=== PATIENT | male | born 1955 | race Caucasian/White ===

== ENCOUNTER → 2022-06-08 12:48 | Outpatient (BNVA) | payer MEDICARE, OTHER, SELFPAY | PROVIDERS: Family Provider Internal Medicine; PCP Internal Medicine; Visit Provider Family Medicine | DX: E11.9 Type 2 diabetes mellitus without complications (principal); E78.5 Hyperlipidemia, unspecified; I10 Essential (primary) hypertension; K21.9 Gastro-esophageal reflux disease without esophagitis; G47.33 Obstructive sleep apnea (adult) (pediatric); Z99.89 Dependence on other enabling machines and devices; Z00.00 Encounter for general adult medical examination without abnormal findings; F41.9 Anxiety disorder, unspecified | CPT/HCPCS: 80053; 80061; 83036 ==

== ENCOUNTER → 2022-10-04 08:13 | Outpatient (BNVA) | payer MEDICARE, OTHER, SELFPAY | PROVIDERS: Family Provider Internal Medicine; PCP Family Medicine; Visit Provider Family Medicine | DX: E11.9 Type 2 diabetes mellitus without complications (principal); R63.4 Abnormal weight loss; Z12.5 Encounter for screening for malignant neoplasm of prostate; G47.33 Obstructive sleep apnea (adult) (pediatric); I10 Essential (primary) hypertension; K21.9 Gastro-esophageal reflux disease without esophagitis; R41.3 Other amnesia; Z99.89 Dependence on other enabling machines and devices; E78.5 Hyperlipidemia, unspecified; G47.9 Sleep disorder, unspecified | CPT/HCPCS: 80053; 80061; 82607; 83036; 84443; 86592; G0103 ==

== ENCOUNTER 2022-12-25 13:55 | Emergency (ER) | payer MEDICARE, OTHER, SELFPAY ==
[2022-12-25 14:08] VITALS: BP 173/85; PULSE 97; RESP 16; TEMP 36.5; O2SAT 95; BMI 27.3
[2022-12-25 15:34] VITALS: BP 116/66; PULSE 69; RESP 18; O2SAT 93
[2022-12-25 16:00] LABS: Basophils % 0.5 %; Eosinophils % 0.4 %; Hematocrit 47.4 % (42.0-52.0); Hemoglobin 15.8 g/dL (11.7-16.6); Lymphocytes # 1.9 10^3/uL (0.8-4.8); Lymphocytes % 25.4 %; Mean Corpuscular HGB Conc 33.3 g/dL (30.0-36.0); Mean Corpuscular Hemoglobin 31.2 pg (28.0-34.0); Mean Corpuscular Volume 93.5 fl (80-94); Mean Platelet Volume 9.7 fL (7.4-10.4); Monocytes # 0.5 10^3/uL (0.2-0.9); Neutrophils # 5.05 10^3/uL (1.8-7.7); Neutrophils % 66.4 %; Nucleated Red Blood Cells % 0 %; Platelet Count 273 10^3/cmm (130-400); Red Blood Count 5.07 10^6/uL (4.1-5.3); Red Cell Distribution Width 12.4 % (12.1-15.1); White Blood Count 7.6 10^3/uL (4.0-10.0)
--- NOTE | 2022-12-25 16:11 | CTR_ITS ---
PROCEDURE INFORMATION: Exam: CT Head Without Contrast Exam date and time: 12/25/2022 4:19 PM Age: 67 years old Clinical indication: Numbness / parasthesia; Left; Additional info: L hand numbness TECHNIQUE: Imaging protocol: Computed tomography of the head without contrast. Radiation optimization: All CT scans at this facility use at least one of these dose optimization techniques: automated exposure control; mA and/or kV adjustment per patient size (includes targeted exams where dose is matched to clinical indication); or iterative reconstruction. REPORTING DATA: Count of CT and Cardiac NM exams in prior 12 months: This patient has received 0 known CTs and 0 known cardiac nuclear medicine studies in the 12 months prior to the current study. COMPARISON: No relevant prior studies available. RADIATION DOSE METRICS: Total DLP (mGy-cm): 1050.9 FINDINGS: Brain: There are mild periventricular and subcortical lucencies consistent with chronic microvascular ischemic changes.The lewis-white differentiation is maintained. No hemorrhage. No edema. Cerebral ventricles: No ventriculomegaly. Paranasal sinuses: Visualized sinuses are unremarkable. No fluid levels. Mastoid air cells: Visualized mastoid air cells are well aerated. Bones/joints: Unremarkable. No acute fracture. Soft tissues: Unremarkable. CT/CT head wo con* [id number] IMPRESSION: No acute intracranial abnormality. Chronic microvascular ischemic changes.
--- NOTE | 2022-12-25 16:11 | ECG_ITS ---
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 Measurements Intervals [place] Rate: 80 P: 0 IN: 0 QRS: 132 QRSD: 114 T: 95 QT: 376 QTc: 436 Interpretive Statements ATRIAL FIBRILLATION WITH ABERRANT CONDUCTION OR VENTRICULAR PREMATURE COMPLEXES RIGHT AXIS DEVIATION [QRS AXIS > 100] Compared to ECG 03/02/2019 13:22:22 Aberrant conduction of supraventricular beat(s) now present Right-axis deviation now present Myocardial infarct finding now present Sinus rhythm no longer present Electronically Signed On 12-25-2022 22:53:13 CDT by Balaji Arizmendi M.D. [id number]
[2022-12-25 16:20] LABS: Alanine Aminotransferase 17 U/L (0-41); Albumin Level 4.3 g/dL (3.5-5.2); Alkaline Phosphatase 87 U/L (40-130); Anion Gap 13.1 (5-19); Aspartate Amino Transferase 19 U/L (0-40); Blood Urea Nitrogen 11 mg/dL (8-23); Calcium 9.9 mg/dL (8.5-10.5); Carbon Dioxide 30 mmol/L (22-29); Chloride 93 mmol/L (98-107); Globulin 2.6 g/dL (1.3-4.6); Glomerular Filtration Rate 50.2 mL/min (90-130); Glucose 205 mg/dL (65-115); Lipase 21 U/L (13-60); Osmolality Calculated 279 mOsm/kg (285-295); Potassium 4.1 mmol/L (3.5-5.1); Sodium 132 mmol/L (136-145); Total Bilirubin 0.3 mg/dL (0.15-1.2); Total Protein 6.9 g/dL (6.6-8.7)
--- NOTE | 2022-12-25 16:21 | ED_ITS ---
HPI - General Adult General: Chief complaint: Nausea/Vomiting/Diarrhea Stated complaint: left arm tingling, BP issues Time Seen by Provider: 12/25/22 16:02 Source: patient Mode of arrival: ambulatory History of Present Illness: 67-year-old male presents emergency room with complaints of generally not feeling well elevated blood pressure and nausea. He is also complaining of some left arm numbness and tingling however it is limited to the third fourth and fifth fingers on the left hand in the ulnar ridge of his forearm. It does not come proximal to the elbow. He has no other symptoms no difficulty speech or swallowing. No difficulty with vision. No chest pain shortness of breath no falls. Onset (ago): minute(s) Location: left and upper extremity Severity: mild Pain Consistency: constant Relieving factors: none Exacerbating factors: none Associated symptoms: Deny chest pain, confusion, cough, diaphoresis, decreased appetite, dyspnea, fevers/chills, headache(s), malaise, nausea, rash, palpitations, seizures, short of breath, syncope, vomiting or weakness Treatments prior to arrival: none Review of Systems Const: Denies: fever(s), chills, malaise or diaphoresis ENMT: Denies: throat pain, ear or mastoid pain, nasal discharge or nasal congestion Card: Denies: chest pain, palpitations or syncope Resp: Denies: dyspnea GI: Denies: nausea or vomiting : Denies: flank pain, dysuria, urinary frequency or urinary urgency Skin/Breast: Denies: rash Neuro: Denies: headache(s) or confusion PFS ED PFSH: Medical History Anxiety Diabetes Dyslipidemia GERD (gastroesophageal reflux disease) Hypertension TREVOR on CPAP Vitiligo Surgical History No history of previous surgery Family History Mother CAD (coronary artery disease) Cancer pancreatic Brother Family history of premature coronary artery disease Diabetes Denies family history of Dementia Chronic kidney disease (CKD) Stroke Social History Smoking and tobacco status: never smoked Second hand smoke exposure: Yes Alcohol intake: former Lives independently: Yes Household members: spouse Marital status: Physical Exam Const: GENERAL APPEARANCE: cooperative and comfortable ORIENTATION/CONSCI OUSNESS: Yes awake, Yes oriented to person, Yes oriented to place and Yes oriented to time HENMT: COMMON NORMALS: normocephalic, atraumatic and hearing grossly normal bilaterally HEAD & SCALP: normocephalic and atraumatic Resp: COMMON NORMALS: normal respiratory effort, No retractions, No use of accessory muscles and clear to auscultation bilaterally AUSCULTATION: clear to auscultation bilaterally Cardio: COMMON NORMALS: regular rate, regular rhythm and No murmurs present (Cardio) RATE: regular rate RHYTHM: regular rhythm GI: COMMON NORMALS: Soft to palpation and No hepatosplenomegaly present AUSCULTATION: Yes normoactive bowel sounds PALPATION: Yes Soft to palpation, No Tenderness to palpation present (GI), No Guarding due to palpation present (GI) and Yes No hepatosplenomegaly present Extremity: COMMON NORMALS: normal to inspection, capillary refill normal, no clubbing, cyanosis or edema, no calf tenderness and no pedal edema Neuro: SENSORIUM/ORIENTATION: Yes oriented to person, Yes oriented to place and Yes oriented to time Skin: COMMON NORMALS: no rashes or lesions noted GENERAL SKIN EXAM: no rashes or lesions noted Course Vital Signs: Vital signs: Vital Signs Temperature 97.7 F 12/25/22 14:08 Pulse Rate 75 12/25/22 18:00 Respiratory Rate 18 12/25/22 18:00 Blood Pressure 165/91 12/25/22 18:00 Pulse Oximetry 97 12/25/22 18:00 MDM - General Adult Medical Decision Making NIH score of 1 for the loss of sensation is very limited and actually fairly minor it is purely in the ulnar distribution of the left arm distal to the elbow. With scratch testing patient has a very minor differentiation. He reports more numbness and tingling kind of sensation. Discussed with him about an ulnar nerve compression he does admit he frequently leans on that elbow when doing different tasks. His blood pressure is actually mildly elevated he is reporting quite a bit of variation at home. He would benefit from further blood pressure control we will add amlodipine 5 mg daily. Patient encouraged to follow-up with primary care within the next week to reevaluate blood pressure. Return if is worsening change symptoms Medical Records I reviewed the patient's medical records. Lab Data I reviewed the patient's lab results. 12/25/22 15:17 12/25/22 15:[address] 12/25/22 16:11 IMPRESSION: No acute intracranial abnormality. Chronic microvascular ischemic changes. Laboratory Results WBC 7.6 10^3/uL (4.0-10.0) 12/25/22 15:17 RBC 5.07 10^6/uL (4.1-5.3) 12/25/22 15:17 Hgb 15.8 g/dL (11.7-16.6) 12/25/22 15:17 Hct 47.4 % (42.0-52.0) 12/25/22 15:17 MCV 93.5 fl (80-94) 12/25/22 15:17 MCH 31.2 pg (28.0-34.0) 12/25/22 15:17 MCHC 33.3 g/dL (30.0-36.0) 12/25/22 15:17 RDW 12.4 % (12.1-15.1) 12/25/22 15:17 Plt Count 273 10^3/cmm (130-400) 12/25/22 15:17 MPV 9.7 fL (7.4-10.4) 12/25/22 15:17 Neut % (Auto) 66.4 % 12/25/22 15:17 Lymph % (Auto) 25.4 % 12/25/22 15:17 Coffee % (Auto) 7.0 % 12/25/22 15:17 Eos % (Auto) 0.4 % 12/25/22 15:17 Baso % (Auto) 0.5 % 12/25/22 15:17 Neut # (Auto) 5.05 10^3/uL (1.8-7.7) 12/25/22 15:17 Lymph # (Auto) 1.9 10^3/uL (0.8-4.8) 12/25/22 15:17 Coffee # (Auto) 0.5 10^3/uL (0.2-0.9) 12/25/22 15:17 Eos # (Auto) 0.0 10^3/uL (0.0-0.8) 12/25/22 15:17 Baso # (Auto) 0.0 10^3/uL (0.0-0.1) 12/25/22 15:17 Nucleated RBC % (auto) 0 % 12/25/22 15:17 Nucleated RBCs # 0.0 /100WBC 12/25/22 15:17 Sodium 132 mmol/L (136-145) L 12/25/22 15:17 Potassium 4.1 mmol/L (3.5-5.1) 12/25/22 15:17 Chloride 93 mmol/L (98-107) L 12/25/22 15:17 Carbon Dioxide 30 mmol/L (22-29) H 12/25/22 15:17 Anion Gap 13.1 (5-19) 12/25/22 15:17 BUN 11 mg/dL (8-23) 12/25/22 15:17 Creatinine 1.4 mg/dL (0.7-1.2) H 12/25/22 15:17 GFR Calculation 50.2 mL/min (90-130) L 12/25/22 15:17 Glucose 205 mg/dL (65-115) H 12/25/22 15:17 Calculated Osmolality 279 mOsm/kg (285-295) L 12/25/22 15:17 Calcium 9.9 mg/dL (8.5-10.5) 12/25/22 15:17 Total Bilirubin 0.3 mg/dL (0.15-1.2) 12/25/22 15:17 AST 19 U/L (0-40) 12/25/22 15:17 ALT 17 U/L (0-41) 12/25/22 15:17 Alkaline Phosphatase 87 U/L (40-130) 12/25/22 15:17 Total Protein 6.9 g/dL (6.6-8.7) 12/25/22 15:17 Albumin 4.3 g/dL (3.5-5.2) 12/25/22 15:17 Globulin 2.6 g/dL (1.3-4.6) 12/25/22 15:17 Lipase 21 U/L (13-60) 12/25/22 15:17 Urine Color Yellow (Yellow) 12/25/22 16:46 Urine Appearance Clear (CLEAR) 12/25/22 16:46 Urine pH 7 (5-7) 12/25/22 16:46 Ur Specific [place] 1.010 (1.005-1.030) 12/25/22 16:46 Urine Protein Neg (Negative) 12/25/22 16:46 Urine Glucose (UA) Norm (Normal) 12/25/22 16:46 Urine Ketones Negative (Negative) 12/25/22 16:46 Urine Blood Neg (Negative) 12/25/22 16:46 Urine Nitrate Negative (Negative) 12/25/22 16:46 Urine Bilirubin Neg (Negative) 12/25/22 16:46 Urine Urobilinogen Neg mg/dL (Negative) 12/25/22 16:46 Ur Leukocyte Esterase Negative (Negative) 12/25/22 16:46 Discharge Plan Discharge Patient Disposition: Home Clinical Impression: HTN (hypertension), Ulnar neuropathy Condition: Stable Prescriptions: New amlodipine 5 mg tablet 5 mg PO DAILY Qty: 30 0RF No Action omeprazole 20 mg capsule,delayed release(DR/EC) 20 mg PO DAILY Qty: 90 0RF hydrochlorothiazide 25 mg tablet 25 mg PO DAILY Qty: 90 0RF amitriptyline 50 mg tablet 50 mg PO DAILY Qty: 90 0RF (DME) CPAP Device See Rx Instructions .Route Qty: 1 0RF Rx Instructions: Cpap supplies Aspir-81 81 mg Tablet,Delayed Release (Dr/Ec) 81 mg PO DAILY Motrin 400 mg Tablet 800 mg PO Q8H PRN (Reason: Pain) Xyzal 5 mg Tablet 5 mg PO DAILY PRN (Reason: Allergy Symptoms) Discharge Orders: Discharge ED (Routine); Ordered 12/25/22 Ordered By: Amrit Parra Referrals: Lyn Hameed MD [Primary Care Provider] - Discharge Diet: Usual diet Discharge Activity: Resume usual activity Patient Instructions: Opioid Safety, Pain Management Activity Restrictions/Additional Instructions: You are seen today for elevated blood pressure and numbness in your left hand the sensation left hand is follows a pattern suggestive of an ulnar neuropathy. CT of your head was negative your blood pressure was slightly elevated recommend you start the amlodipine 5 mg daily continue other previously prescribed medications and follow-up with your primary care doctor for further evaluation your blood pressure if the numbness continues in the hand the primary care doctor can arrange for further evaluation. Coding Level of Care Code ED [employer] for [employer]g Fwd NIH stroke score NIHSS Level Of Consciousness - 1a: 0 Level Of Consciousness Questions - 1b: Both Correct Level Of Consciousness Commands - 1c: Both Correct Best Gaze - 2: Normal Visual Salter - 3: No Visual Loss Facial Palsy - 4: Normal Motor Arm Right - 5: No Drift Motor Arm Left - 5: No Drift Motor Leg Right - 6: No Drift Motor Leg Left - 6: No Drift Limb Ataxia - 7: Absent Sensory - 8: Mild To Moderate Loss (Limited to the distribution of the ulnar nerve in the left arm) Best Language - 9: No Aphasia Dysarthia - 10: Normal Extinction And Inattention - 11: 0 Score Total Score: 1
[2022-12-25 16:52] VITALS: BP 145/84; PULSE 81; RESP 16; O2SAT 98
[2022-12-25 16:57] LABS: Add Urine Microscopic? NO; Charge for UA Resulting for Rev
[2022-12-25 17:00] VITALS: BP 156/74; PULSE 75; RESP 17; O2SAT 97
[2022-12-25 17:30] VITALS: BP 158/92; PULSE 72; RESP 22; O2SAT 97
[2022-12-25 17:44] LABS: Bilirubin Urine Neg (Negative); Blood Urine Neg (Negative); Glucose Urine UA Norm (Normal); Ketones Urine Negative (Negative); Leukocyte Esterase Urine Negative (Negative); Nitrate Urine Negative (Negative); Protein Urine Neg (Negative); Urine Appearance Clear (CLEAR); Urine Color Yellow (Yellow); Urobilinogen Urine Neg (Negative); pH Urine 7 (5-7)
[2022-12-25 18:00] VITALS: BP 165/91; PULSE 75; RESP 18; O2SAT 97
== END 2022-12-25 18:29 | disposition home or self-care (01) ==
PROVIDERS: Emergency Provider Family Medicine; PCP Family Medicine
DX: I10 Essential (primary) hypertension (principal); G56.22 Lesion of ulnar nerve, left upper limb; Z79.82 Long term (current) use of aspirin; E11.9 Type 2 diabetes mellitus without complications; E78.5 Hyperlipidemia, unspecified; Z77.22 Contact with and (suspected) exposure to environmental tobacco smoke (acute) (chronic)
CPT/HCPCS: 36415; 70450; 80053; 81003; 83690; 85025; 93005; 99285

== ENCOUNTER → 2023-01-04 08:27 | Outpatient (BNVA) | payer MEDICARE, OTHER, SELFPAY | PROVIDERS: PCP Family Medicine; Visit Provider Family Medicine | DX: E11.9 Type 2 diabetes mellitus without complications (principal); E78.5 Hyperlipidemia, unspecified; N17.9 Acute kidney failure, unspecified; I10 Essential (primary) hypertension; K21.9 Gastro-esophageal reflux disease without esophagitis; Z99.89 Dependence on other enabling machines and devices; G47.33 Obstructive sleep apnea (adult) (pediatric); G47.9 Sleep disorder, unspecified; R41.3 Other amnesia | CPT/HCPCS: 80048; 80061; 83036 ==

== ENCOUNTER 2023-01-17 11:01 | Emergency (ER) | payer MEDICARE, OTHER, SELFPAY ==
[2023-01-17 11:34] VITALS: BP 157/74; PULSE 73; RESP 16; O2SAT 99; BMI 27.3
[2023-01-17 14:15] VITALS: BP 172/76; PULSE 89; RESP 18; O2SAT 99
--- NOTE | 2023-01-17 15:04 | ED_ITS ---
HPI - General Adult General: Chief complaint: Recheck/Abnormal Lab/Rx Stated complaint: Low blood pressure, Pulse abnormal Time Seen by Provider: 01/17/23 14:17 Source: patient Mode of arrival: ambulatory Limitations: no limitations History of Present Illness: Patient is a nice 67-year-old male who presents to ED today stating he had an episode of low blood pressure and low pulse after taking a half oxycodone and smoking marijuana. Patient states he is unfortunately dealing with the of his brother. His /burial ceremony was yesterday and patient states he was struggling with some grief today so decided to take 1/2 tablet of a 5 mg oxycodone and states he smoked some marijuana. He states none of these were taken in any type of ill attempt to harm himself. He states after taking these medications he had an episode where he felt like he might pass out. reportedly took a blood pressure and a pulse and told him it was low thus prompting his ED visit. Upon arrival patient admittedly already feels better. Blood pressure upon arrival is 157/74 with a pulse of 73. During my initial examination patient tells me he is completely asymptomatic. He states that he feels silly that he came to the ED. Patient denies chest pain, shortness of breath, difficulty breathing, lightheadedness/dizziness. Patient states he does not want any form of work-up and would like to go home at this time. Onset (ago): hour(s) Pain Consistency: now resolved Relieving factors: none Exacerbating factors: medication Associated symptoms: Reports no associated symptoms; Deny chest pain, confusion, dyspnea, headache(s), malaise, nausea, rash, p alpitations, syncope or vomiting Treatments prior to arrival: none Review of Systems Const: Denies: fever(s), chills, body aches, fatigue or malaise Eyes: Denies: change in vision, blurry vision, photophobia, floaters or seeing flashes Card: Reports: lightheadedness (resolved) and pre-syncope (resolved); Denies: chest pain, palpitations, irregular heart rhythm, edema, swelling of feet/ankles, syncope, dyspnea on exertion, orthopnea, leg pain with exertion or acrocyanosis Resp: Denies: dyspnea, productive cough, non-productive cough, wheezing, stridor, pain on inspiration, change in phlegm color, hemoptysis or chest congestion GI: Denies: abdominal pain, nausea, vomiting or diarrhea Musc: Denies: neck pain, back pain, extremity pain or joint pain Skin/Breast: Denies: rash Neuro: Denies: headache(s), numbness in extremities, weakness in extremities, sensory changes, difficulty walking, frequent falls, confusion, behavioral changes, Slurred speech present, difficulty communicating thoughts or seizure- like activity Psych: Reports: other (grief from of brother); Denies: depression or suicidal ideation PFSH ED PFSH: Medical History Anxiety Diabetes Dyslipidemia GERD (gastroesophageal reflux disease) Hypertension TREVOR on CPAP Vitiligo Surgical History No history of previous surgery Family History Mother CAD (coronary artery disease) Cancer pancreatic Brother Family history of premature coronary artery disease Diabetes Denies family history of Dementia Chronic kidney disease (CKD) Stroke Social History Smoking and tobacco status: never smoked Second hand smoke exposure: Yes Alcohol intake: former Substance/Drug Use: never Lives independently: Yes Household members: spouse Marital status: Physical Exam Const: COMMON NORMALS: no acute distress, average body habitus, patient oriented x3, no limitations, healthy appearing, alert and well nourished ORIENTATION/CONSCIOUSNESS: Yes awake, Yes oriented to person, Yes oriented to place and Yes oriented to time HENMT: COMMON NORMALS: normocephalic and atraumatic HEAD & SCALP: normal to inspection, normocephalic and atraumatic Eye: GENERAL EYE: appearance normal, both eyes and all related structures Neck/C-Spine: COMMON NORMALS: full ROM, no lymphadenopathy, supple and no meningeal signs Resp: COMMON NORMALS: normal respiratory effort and clear to auscultation bilaterally AUSCULTATION: clear to auscultation bilaterally Cardio: COMMON NORMALS: regular rate and regular rhythm RATE: regular rate RHYTHM: regular rhythm Extremity: COMMON NORMALS: normal to inspection GENERAL: Yes normal exam except as noted Neuro: PATO COMA SCALE: document GCS findings Pato coma scale eye opening: Spontaneous [place] coma scale verbal response: Orientated Pato coma scale motor response: Obey commands Pato coma scale total score: 15 COMMON NORMALS: patient oriented x3, CN's II-XII intact bilaterally, moves all extremities, no focal motor deficits, no sensory deficits noted and gait normal SENSORIUM/ORIENTATION: Yes alert, Yes oriented to person, Yes oriented to place and Yes oriented to time MENINGEAL SIGNS: Yes no meningeal signs SPEECH: speech normal GAIT: Yes Normal gait present Skin: COMMON NORMALS: no rashes or lesions noted GENERAL SKIN EXAM: no jorge a hes or lesions noted Course Vital Signs: Vital signs: Vital Signs Pulse Rate 90 01/17/23 15:17 Respiratory Rate 18 01/17/23 14:15 Blood Pressure 178/82 01/17/23 15:17 Pulse Oximetry 97 01/17/23 15:17 Oxygen Delivery Me thod Room Air 01/17/23 14:15 MDM - General Adult Medical Decision Making Patient's vitals are stable upon arrival and have remained stable throughout his stay. He does not want any form of work up at this time and states he is asymptomatic and would like to go home. Return to ED precautions given. Discharge Plan Discharge Patient Disposition: Home Clinical Impression: Normal exam, Transient hypotension Condition: Stable Prescriptions: No Action omeprazole 20 mg capsule,delayed release(DR/EC) 20 mg PO DAILY Qty: 90 0RF amitriptyline 50 mg tablet 50 mg PO DAILY Qty: 90 0RF amlodipine 5 mg tablet 5 mg PO DAILY Qty: 90 1RF (DME) CPAP Device See Rx Instructions .Route Qty: 1 0RF Rx Instructions: Cpap supplies atorvastatin 20 mg tablet 20 mg PO DAILY Qty: 90 0RF Aspir-81 81 mg Tablet,Delayed Release (Dr/Ec) 81 mg PO DAILY Motrin 400 mg Tablet 800 mg PO Q8H PRN (Reason: Pain) Xyzal 5 mg Tablet 5 mg PO DAILY PRN (Reason: Allergy Symptoms) Discharge Orders: Discharge ED (Routine); Ordered 01/17/23 Ordered By: Shyanne Banks Referrals: yLn Hameed MD [Primary Care Provider] - Activity Restrictions/Additional Instructions: As we discussed you need to return to the emergency department for onset of chest pain, shortness of breath, difficulty breathing, palpitations, dizziness/lightheadedness/passing out episodes, further episodes of low blood pressure or feeling like you are going to pass out, or any other concerns you may have. Coding Level of Care Code ED [employer] for [employer]
[2023-01-17 15:17] VITALS: BP 178/82; PULSE 90; O2SAT 97
== END 2023-01-17 15:18 | disposition home or self-care (01) ==
PROVIDERS: Emergency Provider Physician Assistant; PCP Family Medicine
DX: I95.89 Other hypotension (principal); Z79.82 Long term (current) use of aspirin; E11.9 Type 2 diabetes mellitus without complications; E78.5 Hyperlipidemia, unspecified; I10 Essential (primary) hypertension; Z77.22 Contact with and (suspected) exposure to environmental tobacco smoke (acute) (chronic)
CPT/HCPCS: 99282

== ENCOUNTER → 2023-04-05 08:22 | Outpatient (BNVA) | payer MEDICARE, OTHER, SELFPAY | PROVIDERS: PCP Family Medicine; Visit Provider Family Medicine | DX: E11.9 Type 2 diabetes mellitus without complications (principal) | CPT/HCPCS: 80048; 82043; 83036 ==

== ENCOUNTER → 2023-10-03 11:31 | Outpatient (BNVA) | payer MEDICARE, OTHER, SELFPAY | PROVIDERS: PCP Family Medicine; Visit Provider Family Medicine | DX: I10 Essential (primary) hypertension (principal); E78.5 Hyperlipidemia, unspecified; E11.9 Type 2 diabetes mellitus without complications | CPT/HCPCS: 80053; 80061; 83036 ==

== ENCOUNTER → 2024-04-07 08:29 | Outpatient (BNVA) | payer MEDICARE, OTHER, SELFPAY | PROVIDERS: PCP Family Medicine; Visit Provider Family Medicine | DX: E11.9 Type 2 diabetes mellitus without complications (principal) | CPT/HCPCS: 80048; 80061; 83036 ==

== ENCOUNTER → 2024-07-07 08:29 | Outpatient (BNVA) | payer MEDICARE, OTHER, SELFPAY | PROVIDERS: PCP Family Medicine; Visit Provider Family Medicine | DX: E11.9 Type 2 diabetes mellitus without complications (principal) | CPT/HCPCS: 80048; 80061; 83036 ==

== ENCOUNTER → 2024-10-08 08:20 | Outpatient (BNVA) | payer MEDICARE, OTHER, SELFPAY | PROVIDERS: PCP Family Medicine; Visit Provider Family Medicine | DX: E11.9 Type 2 diabetes mellitus without complications (principal) | CPT/HCPCS: 80053; 80061; 82607; 83036 ==

== ENCOUNTER → 2025-04-06 08:58 | Outpatient (BNVA) | payer MEDICARE, OTHER, SELFPAY | PROVIDERS: PCP Family Medicine; Visit Provider Family Medicine | DX: I10 Essential (primary) hypertension (principal); E78.5 Hyperlipidemia, unspecified; E11.9 Type 2 diabetes mellitus without complications | CPT/HCPCS: 80048; 80061; 83036 ==